=== PATIENT | female | born 1930 | race Caucasian/White ===

== ENCOUNTER → 2019-12-27 | Outpatient (CLI) | payer OTHER ==
[~2019-12-27] MED LIST: CARDIZEM CD180 MG PO; DIOVAN HCT 1601 EACH PO; DOCUSATE SODIU100 MG PO; FENOFIBRATE200 MG PO; HYDROCHLOROTH12.5 MG PO; LEVOTHYROXIN0.088 MG PO; LEVOXYL75 MCG PO; MIRALAX255 GM PO; NEOMYCIN/BACIT3.5 G1; PRADAXA150 MG PO; VITAMIN D-32000 UNIT PO; ZOCOR 20 MG TAB20 M1 PO
== END ==
LOC: SJCVC 14:38
DX: R94.31 Abnormal electrocardiogram [ECG] [EKG] (principal); I48.21 Permanent atrial fibrillation; I10 Essential (primary) hypertension; E78.00 Pure hypercholesterolemia, unspecified; D68.59 Other primary thrombophilia

== ENCOUNTER → 2020-05-09 | Outpatient (CLI) | payer OTHER | LOC: SJCVC 11:26 | PROVIDERS: ATTEND Internal Medicine Cardiovascular Disease | DX: R94.31 Abnormal electrocardiogram [ECG] [EKG] (principal); I48.21 Permanent atrial fibrillation; I35.1 Nonrheumatic aortic (valve) insufficiency; I10 Essential (primary) hypertension; E78.00 Pure hypercholesterolemia, unspecified; D68.59 Other primary thrombophilia; Z79.899 Other long term (current) drug therapy ==